=== PATIENT | male | born 1940 | race Caucasian/White ===

== ENCOUNTER 2020-08-31 13:15 | Outpatient (CLI) | payer OTHER | END 2020-08-31 13:16 | disposition home or self-care (01) | LOC: CSHMRI 13:15 | PROVIDERS: ATTEND Orthopaedic Surgery | DX: S46.211A Strain of muscle, fascia and tendon of other parts of biceps, right arm, initial encounter (principal); M75.101 Unspecified rotator cuff tear or rupture of right shoulder, not specified as traumatic; D17.9 Benign lipomatous neoplasm, unspecified; M62.511 Muscle wasting and atrophy, not elsewhere classified, right shoulder | CPT/HCPCS: 82565 ==